=== PATIENT | male | born 1990 | race Caucasian/White ===

== ENCOUNTER 2022-11-21 06:24 | Emergency (ER) | payer SELFPAY ==
[~2022-11-21] VITALS: Ht 177.8 cm; Wt 100.0 kg
[2022-11-21 06:29] VITALS: TEMP 98.3
[2022-11-21 06:32] VITALS: O2SAT 99
[2022-11-21 07:00] VITALS: BP 120/67; PULSE 86; RESP 17
[2022-11-21] MEDS ORDERED: IBUPROFEN 600MG TABLET PO ONE (07:00)
[2022-11-21] MEDS ORDERED: IBUP-2029 MT (08:48)
== END 2022-11-21 09:26 | disposition home or self-care (01) ==
LOC: ER 06:24
DX: S92.211A Displaced fracture of cuboid bone of right foot, initial encounter for closed fracture (principal); X58.XXXA Exposure to other specified factors, initial encounter; Y93.89 Activity, other specified; Y92.89 Other specified places as the place of occurrence of the external cause; Y99.8 Other external cause status
CPT/HCPCS: 71046; 73600; 73610; 73630; 99284; Z7610 ×2